=== PATIENT | female | born 1950 | race African-American/Black ===

== ENCOUNTER 2022-02-18 12:04 | Emergency (ER) | payer MEDICARE, OTHER ==
[~2022-02-18] VITALS: Ht 165.1 cm; Wt 66.0 kg
[2022-02-18 12:28] VITALS: BP 171/109
== END 2022-02-18 16:32 | disposition home or self-care (01) ==
LOC: ER 12:04
DX: Z04.3 Encounter for examination and observation following other accident (principal); Z71.84 Encounter for health counseling related to travel; Z79.01 Long term (current) use of anticoagulants
CPT/HCPCS: 99284